=== PATIENT | female | born 2000 | race Two or more races ===

== ENCOUNTER 2024-10-11 11:22 | Emergency (ER) | payer MEDICAID, SELFPAY ==
[2024-10-11 12:03] VITALS: BP 118/76; PULSE 68; RESP 18; TEMP 37.2; O2SAT 99; BMI 26.9
--- NOTE | 2024-10-11 13:21 | XR_ITS ---
Examination: OB Transvaginal ultrasound of the pelvis, complete Technique: Transvaginal sonographic images pelvis performed using villa scale imaging Exam date and time: October 11, 2024 1331 hours INDICATIONS: Early by history with lower pelvic pain and body aches beginning one week ago FINDINGS: Uterus 10.6 x 5.4 x 6.4 cm Twin viable intrauterine gestations Baby A CRL 0.9 cm corresponds to 5 weeks 5 days gestational age, cardiac motion 89 bpm Baby B CRL 1.0 cm corresponds to 5 weeks 5 day gestational age, cardiac motion 105 bpm Right ovary 3.1 x 2.6 cm arterial flow 14 mm follicular cyst Left ovary 2.4 x 1.9 cm arterial flow small follicles IMPRESSION: . Viable intrauterine twin gestations
[2024-10-11 13:23] LABS: Basophils % (Auto) 1 % (0-2.5); Eosinophils # (Auto) 0.1 Thou/mm3 (0.0-0.5); Eosinophils % (Auto) 2 % (0-10); Hemoglobin 12.3 g/dL (12.0-16.0); Immature Granulocytes % (Auto) 0 % (0-0); Lymphocytes % (Auto) 34 % (10-50); Mean Corpuscular HGB Conc 32.4 g/dl (31.0-37.0); Mean Corpuscular Hemoglobin 25.4 pg (25.0-35.0); Mean Corpuscular Volume 79 fL (80-100); Monocytes # (Auto) 0.5 Thou/mm3 (0.0-0.8); Monocytes % (Auto) 8 % (0-12); Neutrophils # (Auto) 3.3 Thou/mm3 (1.8-7.7); Neutrophils % (Auto) 56 % (37-80); Nucleated Red Blood Cell % 0 /100 WBC (0); Platelet Count 195 Thou/mm3 (140-440); RDW Standard Deviation 43.9 fL (36.4-46.3); Red Blood Count 4.84 Miln/mm3 (4.00-5.20); White Blood Count 5.9 Thou/mm3 (3.6-11.0)
--- NOTE | 2024-10-11 13:34 | PD.EDRME ---
Rapid Medical Screening Exam RME Arrival date/time: 10/11/24 11:22 24-year-old female presents emergency department complaints of pelvic pain, nausea, body aches patient reports not sure how far along Chief Complaint: Nausea/Vomiting/Diarrhea Time Seen by Provider: 10/11/24 11:28 Vital signs: Vital Signs Temperature 99.0 F 10/11/24 12:03 Pulse Rate 68 10/11/24 12:03 Respiratory Rate 18 10/11/24 12:03 Blood Pressure 118/76 10/11/24 12:03 Pulse Oximetry (%) 99 10/11/24 12:03 Oxygen Delivery Method Room Air 10/11/24 12:03
[2024-10-11 13:43] LABS: Alanine Aminotransferase 23 U/L (10-49); Albumin/Globulin Ratio 1.7 (1.2-2.2); Anion Gap 6 (7-16); Aspartate Amino Transferase 20 U/L (0-34); BUN/Creatinine Ratio 10 Ratio (12-20); Bilirubin,Total 0.5 mg/dL (0.3-1.2); Blood Urea Nitrogen 8 mg/dL (9-23); Calcium 9.7 mg/dL (8.3-10.6); Calcium (Corrected) 9.7 mg/dL (8.5-10.1); Carbon Dioxide 25.1 mMol/L (20.0-31.0); Chloride 102 mMol/L (98-107); Creatinine (Component) 0.8 mg/dL (0.6-1.3); Estimated Creatinine Clearance 107.9 mL/min (>60); Globulin 2.9 gm/dL (2.3-3.5); Glucose 98 mg/dL (74-106); Osmolality,Calculated 264 (275-295); Potassium 3.6 mMol/L (3.4-5.1); Sodium 133 mMol/L (136-145); Total Protein 7.9 gm/dL (5.7-8.2); eGFR > 60 See Note
[2024-10-11 13:44] LABS: Alkaline Phosphatase 57 U/L (46-116)
[2024-10-11 14:24] LABS: Beta HCG,Quantitative 32344 mIU/mL (<5.0)
[2024-10-11 14:29] LABS: Collection Type, Urine Clean Catch
--- NOTE | 2024-10-11 14:32 | EDNOTE_ITS ---
Nausea/Vomit./Diarrhea-RME/HPI General Chief complaint: Nausea/Vomiting/Diarrhea Stated complaint: N/V, BODYACHES Time Seen by Provider: 10/11/24 11:28 Arrival date/time: 10/11/24 11:22 24-year-old female with no significant medical problems presents to the emergency department today complaints of nausea vomiting and bodyaches patient reports she is but not sure how far along she is patient does report having elective in mid July Limitations: no limitations RME / HPI RME / HPI Narrative: 10/11/24 11:22 24-year-old female presents emergency department complaints of pelvic pain, nausea, body aches patient reports not sure how far along Related Data Previous Rx's ?Medication ?Instructions ?Recorded ondansetron 4 mg disintegrating 4 mg PO Q8H PRN nausea and 07/29/23 tablet vomiting #30 tabs pantoprazole 40 mg tablet,delayed 40 mg PO QDAY #30 tabs 07/29/23 release (Protonix) acetaminophen 500 mg capsule 1,000 mg (2 x 500 mg) PO Q8HR PRN 10/11/24 pain #30 caps ondansetron 4 mg disintegrating 4 mg PO Q8H PRN nausea and 10/11/24 tablet vomiting #10 tabs Allergies Allergy/AdvReac Type Severity Reaction Status Date / Time No Known Allergies Allergy Verified 03/24/24 12:06 Review of Systems Review of Systems Systems Reviewed: All systems reviewed, normal except as documented Constitutional Constitutional: Reports system reviewed and no additional complaints, except as documented, Reports body ache(s), Reports chills, Denies fever(s) and Denies headache(s) Eyes Eyes: Reports system reviewed and no additional complaints, except as documented and Denies blurry vision ENT Ears, Nose, Mouth, and Throat: Reports system reviewed and no additional complaints, except as documented, Denies headache(s), Denies nasal congestion and Denies nasal discharge Cardiovascular Cardiovascular: Reports system reviewed and no additional complaints, except as documented, Denies chest pain and Denies dyspnea Respiratory Respiratory: Reports system reviewed and no additional complaints, except as documented, Denies chest congestion, Denies cough and Denies dyspnea Gastrointestinal Gastrointestinal: Reports system reviewed and no additional complaints, except as documented, Denies abdominal pain, Reports nausea and Reports vomiting Integumentary/Breasts Skin/Breast: Reports system reviewed and no additional complaints, except as documented and Denies rash Neurologic Neurologic: Reports system reviewed and no additional complaints, except as documented, Reports as per HPI and Denies headache(s) Past Medical History Past Medical History NEUROLOGIC: Negative Neurological Disorders CARDIAC: Negative Cardiac Disorders ED Exam General Limitations: Present no limitations General appearance: Present alert and in no apparent distress Head Head exam: Present atraumatic Eye Eye exam: Present normal appearance, PERRL and EOMI ENT ENT exam: Present normal exam, normal oropharynx and mucous membranes moist Neck Neck exam: Present normal inspection, full ROM and trachea midline Chest Chest inspection: Present normal inspection and symmetric chest wall rise Respiratory Respiratory exam: Present normal lung sounds bilaterally Cardiovascular Cardiovascular exam: Present regular rate, normal rhythm and normal heart sounds Abdominal Exam Abdominal exam: Present soft and normal bowel sounds Extremities Exam Extremities exam: Present normal inspection and full ROM Back Exam Back exam: Present normal inspection and full ROM Neurological Exam Neurological exam: Present alert, oriented X3 and CN II-XII intact Psychiatric Psychiatric exam: Present normal affect and normal mood Skin Skin exam: Present warm, dry, intact and normal color Course Quality Measures none Orders Category Date Time Status Bedside Influenza A&B Antigen Test NOW Care 10/11/24 11:32 Completed US OB transvaginal Stat Exams 10/11/24 13:21 Completed ABO/RH Type Stat Lab 10/11/24 12:52 Completed Beta HCG,Quantitative Stat Lab 10/11/24 12:52 Completed CBC Stat Lab 10/11/24 12:52 Completed Comprehensive Metabolic Panel Stat Lab 10/11/24 12:52 Completed UA [Urinalysis] Stat Lab 10/11/24 14:10 Completed Urine Culture Stat Lab 10/11/24 14:10 Completed Vital Signs Vital signs: Vital Signs Temperature 99.0 F 10/11/24 12:03 Pulse Rate 68 10/11/24 12:03 Respiratory Rate 18 10/11/24 12:03 Blood Pressure 118/76 10/11/24 12:03 Pulse Oximetry (%) 99 10/11/24 12:03 Oxygen Delivery Method Room Air 10/11/24 12:03 O2 saturation 99% room air within normal limits Nausea/Vomiting/Diarrhea MDM Narrative MDM Narrative:: 24-year-old female with no significant medical problems presents to the emergency department today complaints of nausea vomiting and bodyaches patient reports she is but not sure how far along she is patient does report having elective in mid July On exam patient does not appear ill or toxic in no acute distress Lab work as well as ultrasound obtained Lab work no acute emergent findings noted Ultrasound does show 2 viable pregnancies at this time patient has twin gestation I had a long conversation with the patient about her At time of discharge patient does not appear ill or toxic in no acute distress Patient discharged home in no distress to follow-up with primary care doctor in the next 24 to 48 hours and for any worsening symptoms to return to the ER immediately Patient data External records reviewed:: [facility] previous records Clinical information provided by:: patient Social determinants that could affect healthcare access:: none Patient has the following chronic illnesses:: None How is presenting disease/condition affected by chronic disease/condition?: no chronic disease Evaluation data The following diagnostics were reviewed and interpreted by me:: lab results and radiology exam(s) Lab and/or radiology exams considered but not ordered:: Labs and radiology obtained Interpretation Summary: Reviewed by me Medications / Prescriptions Medications / Prescriptions considered but not ordered:: Given Medication administrations:: Given Consultations Consultation(s) initiated? (list below): No Diagnosis Nausea Differential Diagnosis: gastroenteritis, dehydration and other (Viral illness) Most likely diagnosis given after review of the tests above:: Viral illness Admission Indicated Admission indicated?: not indicated Admission Request Was there a request for admission?: No Disposition Plan Disposition Plan: Discharge Discharge Attestation Discharge Attestation: The patient and all family members were given an opportunity to ask questions and understood the discharge instructions. Discharge instructions specifically effects, indications for sooner follow up or return to the emergency department, and the expected course of current diagnosis. Patient condition: Stable Discharge Plan Plan Patient Disposition: HOME (Self Care) Disposition Comment: Stable Prescriptions/Referrals Prescriptions/Med Rec: New acetaminophen 500 mg capsule 1,000 mg PO Q8HR PRN (Reason: pain) Qty: 30 0RF ondansetron 4 mg tablet,disintegrating 4 mg PO Q8H PRN (Reason: nausea and vomiting) Qty: 10 0RF No Action pantoprazole [Protonix] 40 mg tablet,delayed release (DR/EC) 40 mg PO QDAY Qty: 30 0RF ondansetron 4 mg tablet,disintegrating 4 mg PO Q8H PRN (Reason: nausea and vomiting) Qty: 30 0RF Referrals: Skip Foss MD [Primary Care Provider] - In 1 week Problem List Clinical Impression: , twin, Nausea & vomiting Patient/Caregiver Discharge Instructions Education Materials: ED Vomiting (Adult) Additional Instructions: Please follow up with your primary care doctor in the next 24-48hrs for any worsening symptoms return here immediately Print Language: [place] Islander Stand Alone Forms: Ayah Award Info., Work/School Release, Patient Portal Info Letter PA/FENCE POST DRIVER Supervising Physician PA/FENCE POST DRIVER Supervising Physician: Dr. Olsen
[2024-10-11 14:57] VITALS: BP 119/78; PULSE 67; RESP 16; TEMP 37.1; O2SAT 100
[2024-10-11 15:18] LABS: Bacteria,Urine Rare; Bilirubin,Urine Negative (Negative); Blood,Urine Negative (Negative); Color,Urine Yellow (Lt Yel-Yel); Glucose, Urine Negative (Negative); Ketones,Urine 2+ (Negative); Leukocyte Esterase,Urine Negative (Negative); Nitrite,Urine Negative (Negative); Protein,Urine 1+ (Neg - Trace); RBC,Urine 23 /hpf (0-3); Specific Gravity,Urine 1.034 (1.001-1.035); Squamous Epithelial Cell,Urine 13 /hpf (0-5); WBC,Urine 4 /hpf (0-5)
[2024-10-11 15:34] LABS: Clarity,Urine Hazy (Clear/Hazy)
== END 2024-10-11 15:49 | disposition home or self-care (01) ==
PROVIDERS: Nurse Practitioner Primary Care; Emergency Provider Emergency Medicine; PCP Family Medicine
DX: O21.9 Vomiting of pregnancy, unspecified (principal); Z3A.00 Weeks of gestation of pregnancy not specified; O30.009 Twin pregnancy, unspecified number of placenta and unspecified number of amniotic sacs, unspecified trimester
CPT/HCPCS: 36415; 76817; 80053; 81001; 84702; 85025; 86900; 86901; 87086; 87400; 99284

== ENCOUNTER 2025-04-19 22:19 | Emergency (ER) | payer MEDICAID, SELFPAY ==
[2025-04-19 22:21] VITALS: BP 155/86; PULSE 72; RESP 18; TEMP 36.7; O2SAT 98; BMI 26.8
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
--- NOTE | 2025-04-19 22:32 | XR_ITS ---
Examination: CT brain head without contrast. 2-D sagittal coronal reconstructions Date and time of exam:April 19, 2025 1046 hours INDICATIONS: Headaches and dizziness onset today CTDI: vol (mGy):48 DLP: (mGycm):980 Technique: Multiple CT axial sections of the brain have been obtained, 5 mm slice thickness. Contrast has not been administered. 2-D sagittal, coronal reconstructions have been obtained Low dose protocols were performed. One or more of the following dose reduction techniques were used; automated exposure control, adjustment of the mA and/or KV according to patient size, use of iterative reconstruction technique. Findings: No significant ventricular enlargement. Intra-axial or extra-axial hemorrhage density is not seen. No mass effect or midline shift Basal cisterns are not remarkable. Fourth ventricle is midline. Cranial vault intact. Impression: Negative for acute hemorrhage, mass effect or midline shift
--- NOTE | 2025-04-19 22:32 | XR_ITS ---
Examination: CT cervical spine without contrast 2-D sagittal reconstructions 2-D coronal reconstructions 3-D reconstructions. Exam date and time:April 19, 2025 10:46 PM INDICATIONS: Headaches and neck pain this week CTDI:vol (mGy) 9.2 DLP: (mGycm) 207 Technique: Multiple 2 mm axial sections of the cervical spine have been obtained. The coronal and sagittal reconstructions have been obtained. 3-D reconstructions have been obtained. Low dose protocols were performed. One or more of the following dose reduction techniques were used; automated exposure control, adjustment of the mA and/or KV according to patient size, use of iterative reconstruction technique. Findings: Axial sections demonstrate intact base of the skull. C1 exhibit satisfactory relationship to the odontoid. No acute cervical vertebral body fracture seen. Alignment posterior spinous processes satisfactory. Impression: No acute cervical fracture.
[2025-04-19 23:12] LABS: Basophils # (Auto) 0.1 Thou/mm3 (0.0-0.2); Basophils % (Auto) 1 % (0-2.5); Eosinophils # (Auto) 0.2 Thou/mm3 (0.0-0.5); Eosinophils % (Auto) 4 % (0-10); Hematocrit 41.6 % (36.0-46.0); Hemoglobin 14.3 g/dL (12.0-16.0); Immature Granulocytes % (Auto) 0 % (0-0); Immature Granulocytes Auto 0.01 Thou/mm3 (0.00-0.00); Lymphocytes # (Auto) 2.6 Thou/mm3 (1.0-4.8); Lymphocytes % (Auto) 40 % (10-50); Mean Corpuscular HGB Conc 34.4 g/dl (31.0-37.0); Mean Corpuscular Hemoglobin 28.4 pg (25.0-35.0); Mean Corpuscular Volume 83 fL (80-100); Monocytes # (Auto) 0.4 Thou/mm3 (0.0-0.8); Monocytes % (Auto) 6 % (0-12); Neutrophils # (Auto) 3.2 Thou/mm3 (1.8-7.7); Neutrophils % (Auto) 49 % (37-80); Nucleated Red Blood Cell % 0 /100 WBC (0); Platelet Count 210 Thou/mm3 (140-440); RDW Standard Deviation 42.1 fL (36.4-46.3); Red Blood Count 5.03 Miln/mm3 (4.00-5.20); White Blood Count 6.5 Thou/mm3 (3.6-11.0)
[2025-04-19 23:18] LABS: Sed Rate (ESR) 8 mm/hr (0-20)
[2025-04-19] MEDS: ONDANSETRON ODT 4 MG TABRAP PO (23:25)
[2025-04-19] MEDS: ACETAMINOPHEN w/COD 300-30 TABLET 2 TAB PO (23:34)
[2025-04-19 23:42] LABS: Anion Gap 11 (7-16); BUN/Creatinine Ratio 11 Ratio (12-20); Blood Urea Nitrogen 10 mg/dL (9-23); C-Reactive Protein < 0.5 mg/dL (0.0-0.9); Calcium 8.9 mg/dL (8.3-10.6); Carbon Dioxide 25.2 mMol/L (20.0-31.0); Chloride 105 mMol/L (98-107); Creatinine (Component) 0.9 mg/dL (0.6-1.3); Estimated Creatinine Clearance 94.8 mL/min (>60); Free T4 (Free Thyroxine) 1.34 ng/dL (0.89-1.76); Glucose 95 mg/dL (74-106); Magnesium 2.2 mg/dL (1.6-2.6); Osmolality,Calculated 280 (275-295); Potassium 3.8 mMol/L (3.4-5.1); Procalcitonin < 0.04 ng/ml (0.0-0.49); Sodium 141 mMol/L (136-145); Thyroid Stimulating Hormone 2.55 uIU/mL (0.55-4.78); eGFR > 60 See Note
== END 2025-04-20 | disposition home or self-care (01) ==
PROVIDERS: Emergency Provider Emergency Medicine; PCP Family Medicine
DX: G43.909 Migraine, unspecified, not intractable, without status migrainosus (principal); M54.2 Cervicalgia
CPT/HCPCS: 36415; 70450; 72125; 80048; 83735; 84145; 84439; 84443; 85025; 85652; 86140; 99284; Q0162; A9270